=== PATIENT | female | born 1975 | race Caucasian/White ===

== ENCOUNTER 2017-12-01 12:19 | Emergency (ER) | payer SELFPAY ==
--- NOTE | 2017-12-01 12:36 | ER Document Report ---
HPI - HPI Patient complains to provider of: ear fullness for 2 weeks Onset: Other - stuffy nose and cough since yeaterday Onset/Duration: Persistent Pain Level: 4 Context: 42 yo female c/o bilateral ear pain and fullness for 2 weeks. stuffy nose and cough x 1 day. no chest pain or sob. Wants to know if she can have antibiotics for her ear pain. Associated Symptoms: None Exacerbated by: Denies Relieved by: Denies Similar symptoms previously: Yes Recently seen / treated by doctor: No - ROS ROS below otherwise negative: Yes Systems Reviewed and Negative: Yes All other systems reviewed and negative Past Medical History - General Information source: Patient - Social History Smoking Status: Current Some Day Smoker Lives with: Family Family History: Reviewed & Not Pertinent - Medical History Medical History: Negative Surgical Hx: Negative Vertical Provider Document - CONSTITUTIONAL Agree With Documented VS: Yes Exam Limitations: No Limitations General Appearance: No Apparent Distress - INFECTION CONTROL TRAVEL OUTSIDE OF THE [place] IN LAST 30 DAYS: No - HEENT HEENT: Normocephalic. negative: Conjuctival Injection, Pharyngeal Erythema Notes: Bilateral ear canal cerumen impaction - NECK Neck: Supple. negative: Lymphadenopathy-Left, Lymphadenopathy-Right - RESPIRATORY Respiratory: Breath Sounds Normal, No Respiratory Distress - CARDIOVASCULAR Cardiovascular: Regular Rate, Regular Rhythm - NEURO Level of Consciousness: Awake Course - Re-evaluation Re-evalutation: 12/01/17 14:06 All the wax has been removed and her hearing is normal. The tm's are normal and no serous otitis media. - Vital Signs Vital signs: Temp Pulse Resp BP Pulse Ox 98.4 F 76 14 127/88 H 99 12/01/17 12:23 12/01/17 12:23 12/01/17 12:23 12/01/17 12:23 12/01/17 12:23 Discharge - Discharge Clinical Impression: bilatearl cerumen impaction ear Upper respiratory infection Qualifiers: URI type: unspecified viral URI Qualified Code(s): J06.9 - Acute upper respiratory infection, unspecified Condition: Good Disposition: HOME, SELF-CARE Instructions: Cerumen Impaction ([facility]), Upper Respiratory Illness ([facility]) Additional Instructions: [id number] earwax remover in the future Do not use Q-tips because that forces the wax in deeper to your ear Any kind of [id number] cold medicine might help the stuffy nose Return to the emergency room any concerns
[2017-12-01] MEDS ORDERED: DOCUSATE SODIUM 100 MG CAPSULE BTH_EAR ONE (12:41)
[2017-12-01 14:16] VITALS: BP 132/86
== END 2017-12-01 14:13 | disposition home or self-care (01) ==
LOC: ER 12:19
DX: H61.23 Impacted cerumen, bilateral (principal); J06.9 Acute upper respiratory infection, unspecified; H92.03 Otalgia, bilateral; F17.200 Nicotine dependence, unspecified, uncomplicated
CPT/HCPCS: 99283